=== PATIENT | female | born 1985 | race Caucasian/White ===

== ENCOUNTER 2017-07-09 18:08 | Emergency (ER) | payer OTHER ==
[~2017-07-09] VITALS: Ht 160 cm; Wt 63.5 kg
[~2017-07-09 18:08] MED LIST: MACRODANTIN100 M1 PO
== END 2017-07-10 13:11 | disposition home or self-care (01) ==
LOC: ER 18:08
DX: K52.9 Noninfective gastroenteritis and colitis, unspecified (principal)